=== PATIENT | male | born 1985 | race African-American/Black ===

== ENCOUNTER 2022-12-12 23:30 | Emergency (ER) | payer SELFPAY ==
[~2022-12-12] VITALS: Ht 172.7 cm; Wt 79.4 kg
[2022-12-12 23:50] VITALS: BP 188/132; TEMP 98.5
[2022-12-12] MEDS ORDERED: ONDANSETRON 4 MG TAB.RAPDIS ONE (23:57)
[2022-12-13] MEDS ORDERED: ONDANSETRON 4 MG TAB.RAPDIS SL ONE
[2022-12-13 00:34] VITALS: O2SAT 98
== END 2022-12-13 00:35 | disposition home or self-care (01) ==
LOC: ER 23:38
DX: R11.2 Nausea with vomiting, unspecified (principal)
CPT/HCPCS: 99283; Q0162

== ENCOUNTER 2023-11-22 10:32 | Emergency (ER) | payer OTHER ==
[~2023-11-22] VITALS: Ht 170.2 cm; Wt 79.4 kg
[2023-11-22] MEDS ORDERED: GENT5DRO23 EACHEYE (11:04)
[2023-11-22 12:40] VITALS: BP 205/130; TEMP 98.2; O2SAT 99
== END 2023-11-22 11:48 | disposition home or self-care (01) ==
LOC: EDUNIT# 10:32 → ER 10:45
DX: H10.023 Other mucopurulent conjunctivitis, bilateral (principal); Z60.2 Problems related to living alone

== ENCOUNTER 2024-05-20 08:40 | Emergency (ER) | payer OTHER ==
[~2024-05-20] VITALS: Ht 170.2 cm; Wt 74.8 kg
[~2024-05-20 08:40] MED LIST: GENT5DRO23 EACHEYE
[2024-05-20 09:00] VITALS: BP 171/123; TEMP 97.9
[2024-05-20] MEDS ORDERED: METH4TAB17 PO (09:47)
[2024-05-20] MEDS ORDERED: BENZ-13 PO (09:47)
[2024-05-20] MEDS ORDERED: IBUP-1955 PO (09:47)
[2024-05-20 09:54] VITALS: O2SAT 100
== END 2024-05-20 09:55 | disposition home or self-care (01) ==
LOC: ER 08:50
DX: R05.3 Chronic cough (principal); Z60.2 Problems related to living alone

== ENCOUNTER 2024-05-27 19:14 | Emergency (ER) | payer OTHER ==
[~2024-05-27] VITALS: Ht 170.2 cm; Wt 77.1 kg
[~2024-05-27 19:14] MED LIST changes: +BENZ-13 PO; +IBUP-1955 PO; +METH4TAB17 PO
[2024-05-27] MEDS ORDERED: AMLODIPINE BESYLATE 5 MG TABLET ONE (21:03)
[2024-05-27] MEDS: CAPTOPRIL 12.5 MG TABLET PO ONE (21:07)
[2024-05-27] MEDS: AMLODIPINE BESYLATE 5 MG TABLET PO ONE (21:08)
[2024-05-27] MEDS ORDERED: AMLO-213 PO (22:53)
[2024-05-27] MEDS ORDERED: AZIT250T13 PO (22:53)
[2024-05-27 23:09] VITALS: BP 170/130; TEMP 98.5; O2SAT 100
== END 2024-05-27 23:10 | disposition home or self-care (01) ==
LOC: ER 19:16
DX: I10 Essential (primary) hypertension (principal); R05.9 Cough, unspecified; R09.81 Nasal congestion; Z79.899 Other long term (current) drug therapy

== ENCOUNTER 2024-09-20 10:52 | Emergency (ER) | payer OTHER ==
[~2024-09-20] VITALS: Ht 167.6 cm; Wt 83.9 kg
[~2024-09-20 10:52] MED LIST changes: +AMLO-213 PO; +AZIT250T13 PO
[2024-09-20 12:10] VITALS: BP 180/89; TEMP 98.6; O2SAT 95
== END 2024-09-20 12:11 | disposition left against medical advice (07) ==
LOC: ER 10:58
DX: R30.9 Painful micturition, unspecified (principal); Z53.21 Procedure and treatment not carried out due to patient leaving prior to being seen by health care provider